=== PATIENT | female | born 1995 | race Caucasian/White ===

== ENCOUNTER 2016-06-08 16:37 | Emergency (ER) | payer OTHER ==
[~2016-06-08] VITALS: Ht 157.5 cm; Wt 81.6 kg
[~2016-06-08 16:37] MED LIST: ESTROSTEP FE PO; FIORICET 325 MG1 TAB PO; LEVSIN/SL0.125 MG SL; NOVOLOG PUMP; NOVOLOG100 U/ML SC; TRI-LEGEST FE 21 TAB PO; ZOFRAN4 M1 SL
--- NOTE | 2016-06-08 17:08 | ED HEADACHE COMPLAINT ---
History of Present Illness General Chief Complaint: General Adult Stated Complaint: MIGRANE/BS WAS 385 Source: patient Exam Limitations: no limitations Vital Signs & Intake/Output Vital Signs & Intake/Output Vital Signs Date Time Temp Pulse Resp B/P B/P Pulse O2 O2 Flow FiO2 Mean Ox Delivery Rate 06/08 1650 98.5 86 18 128/84 99 Room Air Allergies Coded Allergies: crab (HIVES 06/08/16) ibuprofen (HIVES 05/01/15) Reconcile Medications Estrates H.s. (Estrostep Fe-28 Tablet) 5-7-9-7 TABLET 1 TAB PO DAILY CONTROL (Reported) Insulin Aspart (Novolog) 100 UNIT/ML VIAL INSULIN PUMP (Reported) Naproxen (Naprosyn) 500 MG TABLET 1 TAB PO BID PRN PAIN Triage Note: PT TO TRIAGE WITH C/O MIGRAINE SINCE THIS MORNING. NO OTHER COMPLAINTS. HX OF DIABETES, BG 275 IN TRIAGE. VSS. Triage Nurses Notes Reviewed? yes : No Patient currently breastfeeds: No HPI: This patient is a 21-year-old female with a past medical history including diabetes and migraine headaches who presented to the emergency department today for evaluation of a headache. The patient reported that her blood sugar at home was over 300. She reported that at 11:00 when she woke up this morning she noticed a frontal headache that has gotten worse through the day. The pain is currently an 8 out of 10 and she also feels the pain behind her left eye. She reported, "it feels like mastitis strained." She reported that the pain is throbbing and sharp. She denied any dizziness, lightheadedness, visual changes, chest pain, difficulty breathing, abdominal pain, nausea, vomiting, or any numbness or tingling her extremities. She reported that she was given migraine medication prescribed by her doctor in the past, but reported that they never refilled these prescriptions. She tried taking ibuprofen earlier today at around 11:30 with mild relief of her symptoms. Past History Travel History Traveled to [place] past 21 day No Medical History Any Pertinent Medical History? 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 No Review of Systems Review of Systems Constitutional: Reports: no symptoms. Eyes: Reports: no symptoms. Ears, Nose, Throat, Mouth: Reports: no symptoms. Respiratory: Reports: no symptoms. Cardiovascular: Reports: no symptoms. Gastrointestinal/Abdominal: Reports: no symptoms. Musculoskeletal: Reports: no symptoms. Skin: Reports: no symptoms. Neurological/Psychological: Reports: see HPI. All Other Systems: Reviewed and Negative Physical Exam Physical Exam Cranial Nerves: normal hearing, normal speech, PERRL Comments: Well-developed well-nourished person in no acute distress HEENT: Normal EENT exam, head normocephalic, moist mucous membranes PERRLA bilaterally. EOMI bilaterally Neck: Supple, no lymphadenopathy Back: Normal gait Cardiovascular: Regular rate and rhythm with no murmurs, rubs, or gallops Respiratory: No respiratory distress. Breath sounds clear to auscultation bilaterally with no wheezes, rales, rhonchi Extremity: Normal and equal pulses Neuro: Alert oriented x3, motor sensory normal, cranial nerves II through XII grossly intact. Skin: No appreciable rash on exposed skin, skin is warm and dry. Psych: Mood and affect is normal Core Measures Severe Sepsis Present: No Septic Shock Present: No Progress Differential Diagnosis: carotid dissection, cav sinus thromb, cluster CATALAN, encephalitis, IC mass/tumor, intracranial Hem., migraine CATALAN, sinusitis, subarach. Hem., tension CATALAN, temporal arteritis, TMJ syndrome Plan of Care: Current Medications Sig/Kenia Start time Last Medication Dose Stop Time Status Admin Morphine Sulfate 2 MG ONCE ONE 06/08 1714 CAN (Morphine) 06/08 1716 Comments: 06/08/2016 6:13:25 PM the patient is sitting up comfortably on the stretcher in no acute distress and nontoxic-appearing. She is requesting to go home at this time. Blood sugar down to 158. RN was unable to get IV access for fluid. Patient was given Fioricet. This patient used to be on naproxen for her migraines which worked for her. She was requesting a refill of this prescription. Departure Departure Disposition: HOME OR SELF CARE Condition: Stable Clinical Impression Primary Impression: Migraine Qualifiers: Migraine type: unspecified Status migrainosus presence: without status migrainosus Intractability: not intractable Qualified Code: G43.909 - Migraine, unspecified, not intractable, without status migrainosus Referrals: LOLA GUADARRAMA,YI Melendez (PCP/Family) Additional Instructions: Take medication for migraine as prescribed. Follow-up with both your primary care physician as well as with your neurologist. Return for any worsening symptoms or concerns. Departure Forms: Customer Survey General Discharge Information Prescriptions: Current Visit Scripts Naproxen (Naprosyn) 1 TAB PO BID PRN PAIN #20 TAB
[2016-06-08] MEDS ORDERED: NOVOLOG100 UNIT/2 SC (17:17)
[2016-06-08] MEDS ORDERED: ESTROSTEP FE-21 EACH PO (17:17)
[2016-06-08] MEDS ORDERED: NAPROSYN500 M1 PO (18:14)
[2016-06-08 18:17] VITALS: BP 122/80
== END 2016-06-08 18:18 ==
LOC: ERH 16:37
DX: G43.909 Migraine, unspecified, not intractable, without status migrainosus (principal); E11.9 Type 2 diabetes mellitus without complications; Z79.4 Long term (current) use of insulin

== ENCOUNTER 2017-06-17 09:58 | Emergency (ER) | payer OTHER ==
[~2017-06-17] VITALS: Ht 160 cm; Wt 82.6 kg
[~2017-06-17 09:58] MED LIST changes: +ESTROSTEP FE-21 EACH PO; +FIORINAL 50-321 EACH PO; +NAPROSYN500 M1 PO; +NOVOLOG100 UNIT/2 SC
[2017-06-17 10:11] VITALS: BP 129/75
--- NOTE | 2017-06-17 10:57 | ED GENERAL ADULT ---
History of Present Illness General Chief Complaint: General Adult Stated Complaint: PT STATES "I THINK IM DEHYDRATED" Source: patient Exam Limitations: no limitations Vital Signs & Intake/Output Vital Signs & Intake/Output Vital Signs Date Time Temp Pulse Resp B/P B/P Pulse O2 O2 Flow FiO2 Mean Ox Delivery Rate 06/17 1011 97.0 89 18 129/75 99 Room Air Allergies Coded Allergies: crab (HIVES 06/08/16) ibuprofen (HIVES 06/17/17) Reconcile Medications Estrates H.s. (Estrostep Fe-28 Tablet) 5-7-9-7 TABLET 1 TAB PO DAILY CONTROL (Reported) Insulin Aspart (Novolog) 100 UNIT/ML VIAL INSULIN PUMP (Reported) Triage Note: C/O FEELING DIZZY DURING THE NIGHT, STATES SHE WOKE UP MULTP TIMES DURING THE NIGHT WITH HEADACHE AND DIZZINESS. REPORTS SHE WALKED OUTSIDE YESTERDAY, HAS BEEN DRINKING WATER. NOW C/O HEADACHE AND "SLEEPINESS". PMH: DM, FS GLUCOSE WAS 72 1 HOUR AGO. HAS AN INSULIN PUMP. Triage Nurses Notes Reviewed? yes Onset: Abrupt Duration: day(s): (1), changing over time, continues in ED Timing: single episode today Injury Environment: home Severity: mild, moderate Severity Numbers: 4 No Modifying Factors: none LMP (ages 10-50): unknown : No Patient currently breastfeeds: No HPI: 22-year-old female past medical history of migraine headaches and insulin for diabetes presents for evaluation of headache and dizziness. Patient states that yesterday she took part in a river walk where she was outside walking for an extended period of time. States that she was sweating a lot not drinking much water. She states that after the walk she noted that she was tired had a mild headache and dizziness. She states that she drank a lot of water and was feeling better. She is no longer dizzy but is reporting a mild headache she is concerned she still dehydrated. She's been checking her sugars she has an insulin pump. Her last sugar was 72 about an hour prior to arrival. She has been eating and drinking. No nausea vomiting diarrhea fever chest pain or shortness of breath. Past History Travel History Traveled to [place] past 21 day No Medical History Any Pertinent Medical History? 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 No Review of Systems Review of Systems Constitutional: Reports: no symptoms. EENTM: Reports: no symptoms. Respiratory: Reports: no symptoms. Cardiovascular: Reports: no symptoms. GI: Reports: no symptoms. Genitourinary: Reports: no symptoms. Musculoskeletal: Reports: no symptoms. Skin: Reports: no symptoms. Neurological/Psychological: Reports: see HPI (DIZZY), headache. Hematologic/Endocrine: Reports: no symptoms. Immunologic/Allergic: Reports: no symptoms. All Other Systems: Reviewed and Negative Physical Exam Physical Exam General Appearance: well developed/nourished, no apparent distress, alert, awake Head: atraumatic, normal appearance Eyes: Bilateral: normal appearance, PERRL, EOMI. Ears, Nose, Throat: normal pharynx, normal ENT inspection, hearing grossly normal, moist mucus membranes Neck: normal inspection, supple, full range of motion Respiratory: normal breath sounds, chest non-tender, no respiratory distress, lungs clear Cardiovascular: regular rate/rhythm, normal peripheral pulses Peripheral Pulses: 2+ radial (R), 2+ radial (L) Gastrointestinal: soft, non-tender Back: normal inspection, normal range of motion Extremities: normal inspection, normal range of motion, no edema Neurologic/Psych: no motor/sensory deficits, awake, alert, oriented x 3, normal gait Skin: intact, normal color, warm/dry Lymphatic: no anterior cervical sean Core Measures ACS in differential dx? No CVA/TIA Diagnosis: No Sepsis Present: No Sepsis Focused Exam Completed? No Progress Differential Diagnoses I considered the following diagnoses in my evaluation of the patient: [ Dehydration, acute kidney injury, electrolyte unreality, DKA, HHS, hyperglycemia ] Plan of Care: Orders Procedure Date/time Status SERUM OSMOLALITY 06/17 1057 Complete COMPREHENSIVE METABOLIC PANEL 06/17 1057 Complete CBC WITHOUT DIFFERENTIAL 06/17 1057 Complete ACETONE 06/17 1057 Complete URINE 06/17 1024 Complete URINALYSIS 06/17 1024 Complete Laboratory Tests 06/17/17 1128: Urine Color YEL, Urine Clarity CLEAR, Urine pH 6.0, Ur Specific [place] 1.025, Urine Protein NEG, Urine Ketones TRACE H, Urine Nitrite NEG, Urine Bilirubin NEG, Urine Urobilinogen 0.2, Ur Leukocyte Esterase NEG, Ur Microscopic EXAM NOT REQUIRED, Urine Hemoglobin NEG, Urine Glucose >=1000 H, Urine Test NEGATIVE 06/17/17 1112: Anion Gap 13, Estimated GFR > 60, BUN/Creatinine Ratio 21.7, Glucose 255 H, Serum Osmolality 296 H, Calcium 9.7, Total Bilirubin 0.9, AST 23, ALT 18, Alkaline Phosphatase 81, Total Protein 7.6, Albumin 4.3, Globulin 3.3, Albumin/ Globulin Ratio 1.3, CBC w Diff NO MAN DIFF REQ, RBC 4.45, MCV 88.1, MCH 30.7, MCHC 34.9, RDW 12.3, MPV 9.3, Gran % 76.2 H, Lymphocytes % 14.3 L, Monocytes % 7.1, Eosinophils % 2.3, Basophils % 0.1, Absolute Granulocytes 6.5, Absolute Lymphocytes 1.2, Absolute Monocytes 0.6, Absolute Eosinophils 0.2, Absolute Basophils 0, Acetone Level NEGATIVE Patient seen and evaluated. She reports that she was outside doing a [employer] yesterday. She was sweating a lot and not drinking enough water. She felt dizzy and lightheaded and had a headache. She did drink a lot of water last night woke up today without dizziness but still has a persistent mild headache. Vital signs are stable blood sugar an hour BEfor arrival 72. She is neurologically intact. Blood work was obtained which shows a sugar of 255-negative anion gap negative acetone. Patient has an insulin pump. She was given a note given a liter of normal saline and instructed to continue fluids continue monitoring sugars eat 3 meals a day. Make a follow-up with the primary care doctor. Discussed return precautions. Patient agrees the plan Initial ED EKG: none Departure Departure Disposition: HOME OR SELF CARE Condition: Stable Clinical Impression Primary Impression: Dehydration Referrals: Abraham GUADARRAMA,Obinna Melendez (PCP/Family) Additional Instructions: Continue to rest and plenty of fluids continue to monitor sugars. Make a follow -up with her primary care doctor to review all results of today's visit monitor symptoms return with any concerns. Departure Forms: Customer Survey General Discharge Information Critical Care Note Critical Care Note Critical Care Time: non-applicable
[2017-06-17 11:20] LABS: ABSOLUTE BASOPHIL COUNT 0 /CUMM (0.0-0.2); ABSOLUTE EOSINOPHIL COUNT 0.2 /CUMM (0.0-0.7); ABSOLUTE GRANULOCYTE CT 6.5 /CUMM (1.4-6.5); ABSOLUTE LYMPH COUNT 1.2 /CUMM (1.2-3.4); ABSOLUTE MONOCYTE COUNT 0.6 /CUMM (0.10-0.60); BASOPHIL % 0.1 % (0.0-2.0); EOSINOPHIL % 2.3 % (0-5); HEMATOCRIT 39.2 % (37-47); MEAN CORPUSCULAR HGB 30.7 PG (27.0-31.0); MEAN CORPUSCULAR HGB CONC 34.9 G/DL (33.0-37.0); MEAN CORPUSCULAR VOLUME 88.1 FL (81.0-99.0); MEAN PLATELET VOLUME 9.3 FL (7.4-10.4); PLATELET COUNT 307 /CUMM (130-400); RBC DISTRIBUTION WIDTH 12.3 % (11.5-14.5); RED BLOOD CELL CT 4.45 /CUMM (4.20-5.40); WHITE BLOOD CELL COUNT 8.5 /CUMM (4.8-10.8)
[2017-06-17 11:25] LABS: GRANULOCYTE % 76.2 % (42.2-75.2)
== END 2017-06-17 12:50 ==
LOC: ERH 09:58
PROVIDERS: Physician Assistant Medical
DX: E86.0 Dehydration (principal)
CPT/HCPCS: 81003; 81025; 96360

== ENCOUNTER 2017-09-11 12:55 | Emergency (ER) | payer OTHER ==
[~2017-09-11] VITALS: Ht 160 cm; Wt 81.6 kg
[2017-09-11 13:55] LABS: ABSOLUTE BASOPHIL COUNT 0 /CUMM (0.0-0.2); ABSOLUTE EOSINOPHIL COUNT 0.1 /CUMM (0.0-0.7); ABSOLUTE GRANULOCYTE CT 5.7 /CUMM (1.4-6.5); ABSOLUTE LYMPH COUNT 1.5 /CUMM (1.2-3.4); ABSOLUTE MONOCYTE COUNT 0.5 /CUMM (0.10-0.60); BASOPHIL % 0.3 % (0.0-2.0); EOSINOPHIL % 1.8 % (0-5); GRANULOCYTE % 71.8 % (42.2-75.2); HEMATOCRIT 41.2 % (37-47); MEAN CORPUSCULAR HGB 29.9 PG (27.0-31.0); MEAN CORPUSCULAR HGB CONC 33.5 G/DL (33.0-37.0); MEAN CORPUSCULAR VOLUME 89.3 FL (81.0-99.0); MEAN PLATELET VOLUME 8.8 FL (7.4-10.4); PLATELET COUNT 323 /CUMM (130-400); RBC DISTRIBUTION WIDTH 12.2 % (11.5-14.5); RED BLOOD CELL CT 4.62 /CUMM (4.20-5.40); WHITE BLOOD CELL COUNT 7.9 /CUMM (4.8-10.8)
--- NOTE | 2017-09-11 14:58 | ED GENERAL ADULT ---
History of Present Illness General Chief Complaint: General Adult Stated Complaint: NAUSEA,LIGHTHEADED, TYPE 1 DIABETIC Source: patient Exam Limitations: no limitations Vital Signs & Intake/Output Vital Signs & Intake/Output ED Intake and Output 09/12 0000 09/11 1200 Intake Total Output Total Balance Patient 180 lb Weight Weight Reported by Patient Measurement Method Allergies Coded Allergies: crab (HIVES 06/08/16) ibuprofen (HIVES 06/17/17) Reconcile Medications Insulin Aspart (Novolog) 100 UNIT/ML VIAL INSULIN PUMP (Reported) Norgestimate-Ethinyl Estradiol (Sprintec 28 Day Tablet) 0.25 MG-35 MCG TABLET 1 TAB PO DAILY CONTROL (Reported) Triage Note: 22 Y/O FEMALE C/O 2 EPISODES NAUSEA AND "LIGHTHEADEDNESS" SINCE WAKING TODAY. PT HX DIABETES, CHECKED SUGAR AROUND 10AM AND FOUND IT TO BE 306, TOOK NOVOLOG INSULIN BUT UNKNOWN AMOUNT PER PT. PT HAS NOT EATEN TODAY. FINGERSTICK IN TRIAGE 52. PROVIDED WITH ORANGE JUICE AND TAKEN TO ROOM 1 FOR BLOOD DRAW Triage Nurses Notes Reviewed? yes Onset: Gradual Duration: hour(s): Timing: single episode today Injury Environment: home Severity: moderate : No Patient currently breastfeeds: No HPI: 22yo female with hx of type 1 DM presents to ED complaining of nausea since this morning and episode of lightheadedness at work. PAtient states when she woke up she felt nauseous, she checked her glucose level which was greater than 300. Patient took insulin and went to work. Patient states while at work she had persistent nausea and began feeling lightheaded. Patient presented here to the emergency department at which time blood sugar 52 at triage. Patient was given juice and reports feeling improvement in her symptoms. She did not eat anything today. (Nazanin Hoyos) Past History Travel History Traveled to [place] past 21 day No Medical History Any Pertinent Medical History? 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 No (Nazanin Hoyos) Review of Systems Review of Systems Constitutional: Reports: see HPI. EENTM: Reports: no symptoms. Respiratory: Reports: no symptoms. Cardiovascular: Reports: no symptoms. GI: Reports: see HPI. Genitourinary: Reports: no symptoms. Musculoskeletal: Reports: no symptoms. Skin: Reports: no symptoms. Neurological/Psychological: Reports: see HPI. Hematologic/Endocrine: Reports: see HPI. Immunologic/Allergic: Reports: no symptoms. All Other Systems: Reviewed and Negative (Tasha HILL,Nazanin Quarles) Physical Exam Physical Exam General Appearance: well developed/nourished, no apparent distress, alert, awake Head: atraumatic, normal appearance Eyes: Bilateral: normal appearance, PERRL, EOMI. Ears, Nose, Throat: normal pharynx, hearing grossly normal Neck: normal inspection, supple, full range of motion Respiratory: normal breath sounds, no respiratory distress, lungs clear Cardiovascular: regular rate/rhythm Gastrointestinal: normal bowel sounds, soft, non-tender, no organomegaly Back: normal inspection, normal range of motion Extremities: normal inspection, normal range of motion Neurologic/Psych: awake, alert, oriented x 3, circulator II-XII nml as tested Skin: intact, normal color, warm/dry Core Measures ACS in differential dx? No CVA/TIA Diagnosis: No Sepsis Present: No Sepsis Focused Exam Completed? No (Tasha HILL,Nazanin Quarles) Progress Differential Diagnoses I considered the following diagnoses in my evaluation of the patient: [ Hyperglycemia, hypoglycemia, dehydration, electrolyte abnormality, anemia] Plan of Care: Orders Procedure Date/time Status Regular Diet 09/11 D Active URINE 09/11 1309 Active URINALYSIS 09/11 1309 Active COMPREHENSIVE METABOLIC PANEL 09/11 1309 Complete CBC WITHOUT DIFFERENTIAL 09/11 1309 Complete Laboratory Tests 09/11/17 1321: Anion Gap 11, Estimated GFR > 60, BUN/Creatinine Ratio 25.0, Glucose 52 L, Calcium 9.5, Total Bilirubin 0.5, AST 18, ALT 22, Alkaline Phosphatase 89, Total Protein 7.5, Albumin 4.0, Globulin 3.5, Albumin/Globulin Ratio 1.1, CBC w Diff NO MAN DIFF REQ, RBC 4.62, MCV 89.3, MCH 29.9, MCHC 33.5, RDW 12.2, MPV 8.8, Gran % 71.8, Lymphocytes % 19.3 L, Monocytes % 6.8, Eosinophils % 1.8, Basophils % 0.3, Absolute Granulocytes 5.7, Absolute Lymphocytes 1.5, Absolute Monocytes 0.5, Absolute Eosinophils 0.1, Absolute Basophils 0 Fingerstick glucose levels here at than low, patient has been given juice and snacks to help elevated blood sugar. After repeat low glucose level patient was given a meal, she did not eat today. Final reading shows normalized blood sugar of 142. Patient observed for greater than 3 hours. She feels ready to go home at this time, her previous symptoms are resolved. Patient educated to monitor her glucose levels closely for the rest of the day and uses insulin as prescribed for hyperglycemia or eat a snack for low blood sugars. She was given strict return precautions for high or low blood sugars and agrees with the plan of care. She is ambulatory without difficulty leaving the emergency department. Initial ED EKG: none (Tasha HILL,Nazanin Quarles) Departure Departure Disposition: HOME OR SELF CARE Condition: Stable Clinical Impression Primary Impression: Hypoglycemia Referrals: Abraham GUADARRAMA,Obinna Melendez (PCP/Family) Additional Instructions: Continue to check her blood sugar frequently throughout the day. Especially checked her blood pressure if you had further symptoms. If your blood pressure is elevated use insulin as directed. If her blood sugar is low drink juice. If your blood sugar is less than 70 or greater than 300 or if you have worsening symptoms please return here to the emergency department. Please note that there might be incidental findings in your evaluation that are unrelated to the current emergency department visit. Please notify your primary care doctor about this emergency department visit in order to obtain and review all of the testing performed so that these incidental findings can be monitored as needed. If you had an x-ray performed, please understand that some fractures may not be seen on the initial set of x-rays. If your symptoms persist you might need a repeat set of x-rays to check for such a fracture. If you had a laceration evaluated, please understand that foreign bodies such as glass or wood may not be visible to the naked eye or on plain x-rays. If the wound becomes red, swollen, increasingly more painful or if there is any drainage from the wound, please have it reevaluated by a physician for the possibility of a retained foreign body. If you're unable to follow up as outlined in the discharge instructions please return to the emergency department. Thank you for choosing the [facility] Emergency Department for your care. It was a pleasure to serve you today. 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 I have also reviewed all the pertinent lab results and diagnostic results. I agree with the findings and the plan of care as documented in the PA's/CROWNING HAMMER OPERATOR's documentation. [x] I have reviewed the ED Record and agree with the PA's/CROWNING HAMMER OPERATOR's documentation. [] Additions or exceptions (if any) to the PAs/CROWNING HAMMER OPERATOR's note and plan are summarized below: [] (Wendy GUADARRAMA,[facility]) Critical Care Note Critical Care Note Critical Care Time: non-applicable (Tasha HILL,Nazanin Qaurles)
[2017-09-11] MEDS ORDERED: SPRINTEC 28 DA1 EACH PO (15:24)
[2017-09-11 15:33] VITALS: BP 130/69
== END 2017-09-11 17:13 ==
LOC: ERH 12:55
PROVIDERS: Physician Assistant Medical
DX: E10.649 Type 1 diabetes mellitus with hypoglycemia without coma (principal); R11.0 Nausea; R42 Dizziness and giddiness
CPT/HCPCS: 81025; J3101